=== PATIENT | female | born 1990 | race Hispanic/Latino ===

== ENCOUNTER 2017-12-03 15:22 | Emergency (ER) | payer SELFPAY ==
[2017-12-03 15:56] LABS: Basophils % (Auto) 0.3 % (0.0-1.8); Eosinophils % (Auto) 0.4 % (0.0-4.3); Hematocrit 40.4 % (30.3-42.9); Lymphocytes # (Auto) 1.3 K/mm3 (1.2-5.4); Lymphocytes % (Auto) 18.5 % (13.4-35.0); Mean Corpuscular HGB Conc 35 % (30-34); Mean Corpuscular Hemoglobin 32 pg (28-32); Mean Corpuscular Volume 91 fl (79-97); Monocytes # (Auto) 0.5 K/mm3 (0.0-0.8); Monocytes % (Auto) 6.7 % (0.0-7.3); Platelet Count 289 K/mm3 (140-440); Red Blood Count 4.43 M/mm3 (3.65-5.03); Red Cell Distribution Width 13.7 % (13.2-15.2)
[2017-12-03 16:08] LABS: INR 0.84 (0.87-1.13)
[2017-12-03 16:14] LABS: BUN/Creatinine Ratio 24; Blood Urea Nitrogen 19 mg/dL (7-17); Calcium 9.4 mg/dL (8.4-10.2); Hemolysis Index 14
--- NOTE | 2017-12-03 17:15 | Emergency Department Report ---
ED General Adult HPI - General Chief complaint: Arrhythmia/Palpitations Stated complaint: CHEST PAIN/PACING HEART Time Seen by Provider: 12/03/17 16:20 Source: patient Mode of arrival: Ambulatory Limitations: No Limitations - History of Present Illness Initial comments: Ms. 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 She presents with several weeks of heart racing. She felt as if she had just ran a race. Mild fatigue. Over the last few days she's had left-sided chest pain worse when she leans forward. Worse when she breaths in. Hoarse when she inspires. She denies leg pain. She does not take oral contraceptives. However she does have the ParaGard uterine implant for contraception. She is followed by a PCP in [facility] every 6 months. She does not have insurance so she has limited access to insulin. She did miss a few days of insulin therapy. She takes Humalog 3 times a day according to sliding scale. She admits that her hemoglobin A1c is high. She's never had chest pain such as this. Grandmother has a history of thyroid cancer. No famiily hx of coronary artery disease or pulmonary embolism. She lives with her significant other and 2 children. Children have been sick with viruses over the last 1 month. Severity scale (0 -10): 5 - Related Data Previous Rx's Medication Instructions Recorded Last Taken Type Ibuprofen 400 mg PO TID 5 Days #15 tablet 12/03/17 Unknown Rx Allergies Allergy/AdvReac Type Severity Reaction Status Date / Time Penicillins Allergy Swelling Verified 12/03/17 15:35 Sulfa (Sulfonamide Allergy Shortness Verified 12/03/17 15:35 Antibiotics) of Breath ED Review of Systems ROS: Stated complaint: CHEST PAIN/PACING HEART Other details as noted in HPI Comment: All other systems reviewed and negative Constitutional: malaise. denies: fever Respiratory: denies: cough Cardiovascular: chest pain, palpitations ED Past Medical Hx - Past Medical History Previous Medical History?: Yes Hx Diabetes: Yes (TYPE 1) Additional medical history: VAGINAL DELIVERY X 2 - Surgical History Past Surgical History?: Yes Hx Appendectomy: Yes - Family History Family history: other (grandmother with thyroid cancer) - Social History Smoking Status: Never Smoker Substance Use Type: Alcohol, Prescribed Other Social History: She works for [employer]. - Medications Home Medications: Home Medications Medication Instructions Recorded Confirmed Last Taken Type Ibuprofen 400 mg PO TID 5 Days #15 tablet 12/03/17 Unknown Rx ED Physical Exam - General Limitations: No Limitations General appearance: alert, in no apparent distress - Head Head exam: Present: atraumatic, normocephalic - Eye Eye exam: Present: normal appearance - ENT ENT exam: Present: mucous membranes moist, other (coated tongue) - Neck Neck exam: Present: normal inspection. Absent: tenderness, meningismus - Respiratory Respiratory exam: Present: normal lung sounds bilaterally. Absent: respiratory distress, wheezes, rales, rhonchi - Cardiovascular Cardiovascular Exam: Present: regular rate, normal rhythm, normal heart sounds. Absent: bradycardia, tachycardia, irregular rhythm, systolic murmur, diastolic murmur, rubs, gallop, clicks, JVD, S3, S4 - GI/Abdominal GI/Abdominal exam: Present: soft, normal bowel sounds. Absent: distended, tenderness, guarding, rebound - Extremities Exam Extremities exam: Present: normal inspection - Back Exam Back exam: Present: normal inspection - Neurological Exam Neurological exam: Present: alert, oriented X3 - Psychiatric Psychiatric exam: Present: normal affect, normal mood - Skin Skin exam: Present: warm, dry, intact, normal color. Absent: rash ED Course Vital Signs 12/03/17 12/03/17 12/03/17 15:35 16:40 16:46 Temperature 98.5 F Pulse Rate 94 H 76 Respiratory 20 11 L 20 Rate Blood Pressure 137/81 133/81 Blood Pressure [Right] O2 Sat by Pulse 97 99 Oximetry 12/03/17 12/03/17 12/03/17 16:47 16:48 17:00 Temperature 98.0 F Pulse Rate 81 77 Respiratory 10 L 10 L 15 Rate Blood Pressure 117/74 Blood Pressure 133/81 [Right] O2 Sat by Pulse 98 98 99 Oximetry 12/03/17 12/03/17 12/03/17 17:16 17:30 17:46 Temperature Pulse Rate 84 85 86 Respiratory 18 14 13 Rate Blood Pressure 117/74 120/70 120/70 Blood Pressure [Right] O2 Sat by Pulse 98 98 98 Oximetry 12/03/17 12/03/17 12/03/17 18:00 18:16 18:30 Temperature Pulse Rate 85 88 88 Respiratory 15 18 17 Rate Blood Pressure 119/75 119/75 107/61 Blood Pressure [Right] O2 Sat by Pulse 97 Oximetry 12/03/17 12/03/17 12/03/17 18:46 19:00 19:16 Temperature Pulse Rate 89 86 85 Respiratory 11 L 17 17 Rate Blood Pressure 107/61 119/71 119/71 Blood Pressure [Right] O2 Sat by Pulse 97 97 97 Oximetry 12/03/17 12/03/17 19:30 19:46 Temperature Pulse Rate 85 84 Respiratory 18 16 Rate Blood Pressure 123/76 123/76 Blood Pressure [Right] O2 Sat by Pulse 97 99 Oximetry ED Medical Decision Making - Lab Data Result diagrams: 12/03/17 15:45 12/03/17 15:45 Laboratory Results - last 24 hr 12/03/17 12/03/17 12/03/17 15:45 15:45 15:45 WBC 6.9 RBC 4.43 Hgb 14.0 Hct 40.4 MCV 91 MCH 32 MCHC 35 H RDW 13.7 Plt Count 289 Lymph % (Auto) 18.5 [place] % (Auto) 6.7 Eos % (Auto) 0.4 Baso % (Auto) 0.3 Lymph # 1.3 [place] # 0.5 Eos # 0.0 Baso # 0.0 Seg Neutrophils % 74.1 H Seg Neutrophils # 5.1 PT 11.9 L INR 0.84 L APTT 24.0 L Sodium 133 L Potassium 4.4 Chloride 94.1 L Carbon Dioxide 21 L Anion Gap 22 BUN 19 H Creatinine 0.8 Estimated GFR > 60 BUN/Creatinine Ratio 24 Glucose 556 H* Calcium 9.4 Troponin T < 0.010 Vital Signs - 24 hr 12/03/17 12/03/17 12/03/17 15:35 16:40 16:47 Temperature 98.5 F Pulse Rate 94 H Respiratory 20 11 L 10 L Rate Blood Pressure 137/81 Blood Pressure [Right] O2 Sat by Pulse 97 98 Oximetry 12/03/17 16:48 Temperature 98.0 F Pulse Rate 81 Respiratory 10 L Rate Blood Pressure Blood Pressure 133/81 [Right] O2 Sat by Pulse 98 Oximetry Abnormal Lab Results 12/03/17 12/03/17 12/03/17 15:45 15:45 15:45 WBC 6.9 RBC 4.43 Hgb 14.0 Hct 40.4 MCV 91 MCH 32 MCHC 35 H RDW 13.7 Plt Count 289 Lymph % (Auto) 18.5 [place] % (Auto) 6.7 Eos % (Auto) 0.4 Baso % (Auto) 0.3 Lymph # 1.3 [place] # 0.5 Eos # 0.0 Baso # 0.0 Seg Neutrophils % 74.1 H Seg Neutrophils # 5.1 PT 11.9 L INR 0.84 L APTT 24.0 L D-Dimer Sodium 133 L Potassium 4.4 Chloride 94.1 L Carbon Dioxide 21 L Anion Gap 22 BUN 19 H Creatinine 0.8 Estimated GFR > 60 BUN/Creatinine Ratio 24 Glucose 556 H* Calcium 9.4 Troponin T < 0.010 12/03/17 17:29 WBC RBC Hgb Hct MCV MCH MCHC RDW Plt Count Lymph % (Auto) [place] % (Auto) Eos % (Auto) Baso % (Auto) Lymph # [place] # Eos # Baso # Seg Neutrophils % Seg Neutrophils # PT INR APTT D-Dimer < 135.00 Sodium Potassium Chloride Carbon Dioxide Anion Gap BUN Creatinine Estimated GFR BUN/Creatinine Ratio Glucose Calcium Troponin T Vital Signs - 24 hr 12/03/17 12/03/17 12/03/17 15:35 16:40 16:46 Temperature 98.5 F Pulse Rate 94 H 76 Respiratory 20 11 L 20 Rate Blood Pressure 137/81 133/81 Blood Pressure [Right] O2 Sat by Pulse 97 99 Oximetry 12/03/17 12/03/17 12/03/17 16:47 16:48 17:00 Temperature 98.0 F Pulse Rate 81 77 Respiratory 10 L 10 L 15 Rate Blood Pressure 117/74 Blood Pressure 133/81 [Right] O2 Sat by Pulse 98 98 99 Oximetry 12/03/17 12/03/17 12/03/17 17:16 17:30 17:46 Temperature Pulse Rate 84 85 86 Respiratory 18 14 13 Rate Blood Pressure 117/74 120/70 120/70 Blood Pressure [Right] O2 Sat by Pulse 98 98 98 Oximetry 12/03/17 12/03/17 12/03/17 18:00 18:16 18:30 Temperature Pulse Rate 85 88 88 Respiratory 15 18 17 Rate Blood Pressure 119/75 119/75 107/61 Blood Pressure [Right] O2 Sat by Pulse 97 Oximetry 12/03/17 12/03/17 12/03/17 18:46 19:00 19:16 Temperature Pulse Rate 89 86 85 Respiratory 11 L 17 17 Rate Blood Pressure 107/61 119/71 119/71 Blood Pressure [Right] O2 Sat by Pulse 97 97 97 Oximetry 12/03/17 12/03/17 19:30 19:46 Temperature Pulse Rate 85 84 Respiratory 18 16 Rate Blood Pressure 123/76 123/76 Blood Pressure [Right] O2 Sat by Pulse 97 99 Oximetry - EKG Data 12/03/17 17:16 EKG obtained 1530 Rate 90 bpm normal sinus rhythm normal axis no ST elevation right bundle-branch block present no signs of ischemia normal [place] interval, QT interval - Radiology Data Radiology results: image reviewed interpreted by me: Chest x-ray 2 view PA lateral: No osseous abnormality. No infiltrate No pneumothorax normal heart size - Medical Decision Making Ms. Bernstein presents with several weeks of palpitations most likely due to hyperglycemia and mild dehydration. She has ketosis without acidosis. She was given 2 L normal saline in the ED. She was also given IV insulin which resolved her hyperglycemia. She has left sided chest pain with the characteristics of pleurisy or pericarditis. I provide a prescription for ibuprofen for the next 5 days. No indication of PE with normal d-dimer. No indication of pneumothorax or pneumonia next chest x-ray. Discharged home in stable improved condition. Critical care attestation.: If time is entered above; I have spent that time in minutes in the direct care of this critically ill patient, excluding procedure time. ED Disposition Clinical Impression: Hyperglycemia due to type 1 diabetes mellitus, Palpitations, Chest pain Disposition: - TO HOME OR SELFCARE Is pt being admited?: No Does the pt Need Aspirin: No Condition: Stable Instructions: Chest Pain (ED), Palpitations (ED) Prescriptions: Ibuprofen 400 mg PO TID 5 Days #15 tablet Time of Disposition: 21:50
[2017-12-03] MEDS ORDERED: NACL 0.9% 1000 ML 2,000 ML IV ONE (17:17)
[2017-12-03] MEDS ORDERED: HumuLIN R IV ONE (17:18)
--- NOTE | 2017-12-03 19:45 | XRay Report ---
FINAL REPORT EXAM: XR CHEST ROUTINE 2V HISTORY: Shortness of breath TECHNIQUE: Two view chest PA and lateral PRIORS: None. FINDINGS: Cardiac and mediastinal contours are unremarkable. No focal pulmonary infiltrate is identified. No pleural fluid collection seen. Pulmonary vasculature is unremarkable. IMPRESSION: Negative two-view chest
[2017-12-03 19:52] VITALS: BP 123/76
== END 2017-12-03 22:08 | disposition home or self-care (01) ==
LOC: ED 15:22
DX: E10.65 Type 1 diabetes mellitus with hyperglycemia (principal); R07.89 Other chest pain; E86.0 Dehydration; Z88.0 Allergy status to penicillin; Z88.2 Allergy status to sulfonamides; Z90.49 Acquired absence of other specified parts of digestive tract
CPT/HCPCS: 36415; 71046; 80048; 82962; 84484; 85025; 85379; 85610; 85730; 93005; 93010; 96360; 99284; J7030; J1815

== ENCOUNTER 2019-03-04 10:08 | Inpatient (IN) | payer OTHER ==
[2019-03-04 10:49] LABS: Basophils % (Auto) 0.5 % (0.0-1.8); Eosinophils % (Auto) 0.4 % (0.0-4.3); Hematocrit 38.6 % (30.3-42.9); Lymphocytes # (Auto) 1.8 K/mm3 (1.2-5.4); Mean Corpuscular HGB Conc 34 % (30-34); Mean Corpuscular Volume 83 fl (79-97); Monocytes # (Auto) 0.4 K/mm3 (0.0-0.8); Monocytes % (Auto) 4.6 % (0.0-7.3); Platelet Count 338 K/mm3 (140-440); Red Blood Count 4.64 M/mm3 (3.65-5.03); Red Cell Distribution Width 14.1 % (13.2-15.2)
--- NOTE | 2019-03-04 10:52 | Emergency Department Report ---
ED General Adult HPI - General Chief complaint: Hyperglycemia Stated complaint: SOB/LIGHT HEADED/DRY MOUTH Time Seen by Provider: 03/04/19 10:45 Source: patient Mode of arrival: Ambulatory Limitations: No Limitations - History of Present Illness Initial comments: Patient is 28-year-old female presents emergency room with complaints of increasing alertness, nausea vomiting, palpitations and heart racing and poor appetite. Patient states she also had increased urination. Patient also complains of dizziness. Patient states her symptoms are better with rest. Patient states she is a type I diabetic and she is compliant with her insulin. Patient states her symptoms have been going on for 1 week. Patient states her symptoms are worsening. Patient denies chest pain shortness of breath. -: Sudden Consistency: constant Improves with: rest Worsens with: medication Associated Symptoms: loss of appetite, malaise, nausea/vomiting, weakness. denies: confusion, chest pain, cough, diaphoresis, fever/chills, rash, seizure, shortness of breath, syncope Treatments Prior to Arrival: none - Related Data Home Medications Medication Instructions Recorded Confirmed Last Taken Ibuprofen [Motrin] 400 mg PO Q4-6H PRN 03/04/19 03/04/19 03/03/19 Insulin NPH Hum/Reg Insulin Hm 1 dose SUB-Q PRN 03/04/19 03/04/19 03/04/19 [Novolin 70-30 Flexpen] Allergies Allergy/AdvReac Type Severity Reaction Status Date / Time Penicillins Allergy Swelling Verified 03/04/19 11:32 Sulfa (Sulfonamide Allergy Shortness Verified 03/04/19 11:32 Antibiotics) of Breath ED Review of Systems ROS: Stated complaint: SOB/LIGHT HEADED/DRY MOUTH Other details as noted in HPI Constitutional: malaise, weakness. denies: chills, fever Eyes: denies: eye pain, eye discharge, vision change ENT: denies: ear pain, throat pain Respiratory: denies: cough, shortness of breath, wheezing Cardiovascular: palpitations. denies: chest pain Endocrine: no symptoms reported, increased thirst, increased urine Gastrointestinal: nausea, vomiting. denies: abdominal pain, diarrhea Genitourinary: frequency. denies: urgency, dysuria, discharge Musculoskeletal: denies: back pain, joint swelling, arthralgia Skin: denies: rash, lesions Neurological: weakness. denies: headache, paresthesias Psychiatric: denies: anxiety, depression Hematological/Lymphatic: denies: easy bleeding, easy bruising ED Past Medical Hx - Past Medical History Previous Medical History?: Yes Hx Diabetes: Yes (TYPE 1) Additional medical history: VAGINAL DELIVERY X 2 - Surgical History Past Surgical History?: Yes Hx Appendectomy: Yes - Family History Family history: no significant - Social History Smoking Status: Never Smoker Substance Use Type: None - Medications Home Medications: Home Medications Medication Instructions Recorded Confirmed Last Taken Type Ibuprofen [Motrin] 400 mg PO Q4-6H PRN 03/04/19 03/04/19 03/03/19 History Insulin NPH Hum/Reg Insulin Hm 1 dose SUB-Q PRN 03/04/19 03/04/19 03/04/19 History [Novolin 70-30 Flexpen] ED Physical Exam - General Limitations: No Limitations General appearance: alert, in no apparent distress - Head Head exam: Present: atraumatic, normocephalic - Eye Eye exam: Present: normal appearance - ENT ENT exam: Present: mucous membranes dry - Neck Neck exam: Present: normal inspection - Respiratory Respiratory exam: Present: normal lung sounds bilaterally. Absent: respiratory distress - Cardiovascular Cardiovascular Exam: Present: regular rate, normal rhythm. Absent: systolic murmur, diastolic murmur, rubs, gallop - GI/Abdominal GI/Abdominal exam: Present: soft, normal bowel sounds - Extremities Exam Extremities exam: Present: normal inspection - Back Exam Back exam: Present: normal inspection - Neurological Exam Neurological exam: Present: alert, oriented X3 - Psychiatric Psychiatric exam: Present: normal affect, normal mood - Skin Skin exam: Present: warm, dry, intact, normal color. Absent: rash ED Course Vital Signs 03/04/19 10:17 Temperature 98.2 F Pulse Rate 110 H Respiratory 24 Rate Blood Pressure 126/79 O2 Sat by Pulse 97 Oximetry - Reevaluation(s) Reevaluation #1: I discussed all results with patient. I discussed plan of care outpatient. Patient agrees with plan of care and admission. Patient will be admitted to the hospitalist service. 03/04/19 11:06 - Consultations Consultation #1: Hospitalist consulted for admission. Hospitalist to admit the patient. Bridge orders placed 03/04/19 11:07 ED Medical Decision Making - Lab Data Result diagrams: 03/04/19 10:27 03/04/19 12:47 - Medical Decision Making Patient is a 28-year-old female presents emergency room with complaints of poly- tipsy a polyuria and elevated blood sugar. Patient stated she comply with her medications. Patient found have DKA. Patient started on DKA protocol. Patient admitted to the ICU. Patient also admitted to the hospitalist service. - Differential Diagnosis progressing. Noncompliance. DKA. Critical Care Time: Yes Critical care attestation.: If time is entered above; I have spent that time in minutes in the direct care of this critically ill patient, excluding procedure time. Critical Care Time: 35 minutes ED Disposition Clinical Impression: Hyperglycemia Nausea & vomiting Qualifiers: Vomiting type: unspecified Vomiting Intractability: non-intractable Qualified Code(s): R11.2 - Nausea with vomiting, unspecified DKA, type 1 Qualifiers: Diabetes mellitus complication detail: without coma Qualified Code(s): E10.10 - Type 1 diabetes mellitus with ketoacidosis without coma Disposition: DC-09 OP ADMIT IP TO THIS HOSP Is pt being admited?: Yes Does the pt Need Aspirin: No Condition: Critical Time of Disposition: 11:20
[2019-03-04] MEDS ORDERED: NACL 0.9% 1000 ML 1,000 ML IV ONE ×2 (11:00→11:15)
[2019-03-04 11:09] LABS: Alanine Aminotransferase 15 units/L (7-56); Albumin 3.6 g/dL (3.9-5); BUN/Creatinine Ratio 11; Blood Urea Nitrogen 9 mg/dL (7-17); Calcium 8.9 mg/dL (8.4-10.2); Hemolysis Index 14
[2019-03-04] MEDS ORDERED: D50W (25GM) Syringe IV PRN ×2 (11:15→18:24)
[2019-03-04 11:22] LABS: Bacteria,Urine 1+ /HPF (Negative); Bilirubin,Urine NEG (Negative); Blood,Urine MOD (Negative); Color,Urine Yellow (Yellow); Mucus,Urine FEW /HPF; Protein,Urine <15 mg/dL mg/dL (Negative); Urobilinogen,Urine < 2.0 mg/dL (<2.0)
[2019-03-04] MEDS ORDERED: HumuLIN R 100 UNITS in NACL 0.9% 99 ML IV SCH ×2 (12:00→20:00)
[2019-03-04] MEDS ORDERED: D5W/0.45% NACL/KCL 20 MEQ 20 MEQ/1,000 ML BAG IV SCH (13:00)
[2019-03-04 13:19] LABS: BUN/Creatinine Ratio 16; Blood Urea Nitrogen 8 mg/dL (7-17); Calcium 8.5 mg/dL (8.4-10.2); Hemolysis Index 16
[2019-03-04 16:26] LABS: BUN/Creatinine Ratio 14; Blood Urea Nitrogen 7 mg/dL (7-17); Calcium 8.2 mg/dL (8.4-10.2); Hemolysis Index 42
[2019-03-04 17:56] LABS: BUN/Creatinine Ratio 14; Blood Urea Nitrogen 7 mg/dL (7-17); Calcium 8.2 mg/dL (8.4-10.2); Hemolysis Index 5
[2019-03-04] MEDS ORDERED: DILAUDID IV PRN (18:16)
[2019-03-04] MEDS ORDERED: ZOFRAN IV PRN (18:16)
[2019-03-04] MEDS ORDERED: PERCOCET 5/325 PO PRN (18:16)
[2019-03-04] MEDS ORDERED: REGLAN IV PRN (18:16)
[2019-03-04] MEDS ORDERED: SODIUM CHLORIDE FLUSH SYRINGE 10 ML IV PRN (18:16)
[2019-03-04] MEDS ORDERED: PHENERGAN PR PRN (18:16)
[2019-03-04] MEDS ORDERED: LOVENOX SUB-Q SCH (19:00)
[2019-03-04] MEDS ORDERED: LOVENOX SUB-Q ONE (19:44)
[2019-03-04] MEDS: HumaLOG SUB-Q SCH ×2 (19:49→23:13)
[2019-03-04] MEDS ORDERED: HumaLOG SUB-Q ONE (20:01)
[2019-03-04] MEDS ORDERED: DILAUDID ONE (20:03)
[2019-03-04 20:11] LABS: BUN/Creatinine Ratio 12; Blood Urea Nitrogen 6 mg/dL (7-17); Hemolysis Index 15
[2019-03-04] MEDS: NACL 0.9% 1000 ML 1,000 ML IV SCH (20:51)
[2019-03-04] MEDS: TYLENOL PO PRN (21:28)
[2019-03-04] MEDS: PEPCID IV SCH (21:29)
[2019-03-04] MEDS: SODIUM CHLORIDE FLUSH SYRINGE 10 ML IV SCH (21:32)
[2019-03-05] MEDS: HumaLOG SUB-Q SCH ×7 (02:13→21:46)
--- NOTE | 2019-03-05 03:44 | Event Note ---
Date: 03/04/19 See H/p in reports Mild DKA
[2019-03-05 05:27] LABS: BUN/Creatinine Ratio 16; Blood Urea Nitrogen 8 mg/dL (7-17); Calcium 7.9 mg/dL (8.4-10.2); Hemolysis Index 1
--- NOTE | 2019-03-05 06:18 | History and Physical Report ---
CHIEF COMPLAINT: Nausea, vomiting, and palpitations. HISTORY OF PRESENT ILLNESS: This is a 28-year-old female who comes in for nausea, vomiting, and palpitations of 1 day duration. Also, increased urination. The patient states that she is compliant with her insulin, but the symptoms have been going on for 1 week and symptoms are worsening. She describes she may be getting diabetic ketoacidosis. No fever or chills. Nausea, vomiting present. No diarrhea. No shortness of breath. PAST MEDICAL HISTORY: Significant for insulin-dependent diabetes on NovoLog 70/30, 20 units twice a day. PAST SURGICAL HISTORY: Appendectomy x 1. FAMILY HISTORY: No significant family history. SOCIAL HISTORY: Does not smoke. CURRENT MEDICATIONS: Insulin 70/30, 20 units twice a day. Ibuprofen 400 q. 4 hour p.r.n. REVIEW OF SYSTEMS: Significant for nausea, vomiting, and palpitations. Otherwise, review of systems negative. PHYSICAL EXAMINATION: GENERAL: Young female, cooperative during the examination. VITAL SIGNS: Blood pressure is 121/69, temperature is 97.4, pulse is 88, respirations are 18. HEENT: Unremarkable. Pupils equal and reactive. NECK: Supple. No lymphadenopathy, no thyromegaly. LUNGS: Clear to auscultation and percussion. Good air entry. CARDIOVASCULAR: S1, S2 heard. No gallop, no murmur, no rub. Apical impulse in left fifth intercostal space at midclavicular line. ABDOMEN: Soft and benign. No hepatosplenomegaly. No guarding, no rigidity. Hernial orifices are normal. EXTREMITIES: Good pedal pulses. No pedal edema. CENTRAL NERVOUS SYSTEM: Alert and oriented x 4, nonfocal exam. SKIN: Normal. LABORATORY DATA: White count is 9200, hemoglobin is 13.0 and hematocrit 38.6, platelet count is 338,000. Sodium is 134, potassium is 4.1, BUN and creatinine 9 and 0.8, anion gap is 24. A1c is 13, glucose is 257; initial one. Urine shows white blood cells. No imaging studies. ASSESSMENT AND PLAN: 1. Diabetic ketoacidosis, mild. The patient started on IV insulin in the Emergency Room and IV fluids. The patient was feeling a lot better and also the anion gap improved from 24 to 19, at which point the patient was downgraded to telemetry. The patient has uncontrolled diabetes. Medications to be adjusted. Higher insulin doses while going home. DKA protocol initiated and discontinued. 2. Hypertension. Continue antihypertensives. 3. Insulin-dependent diabetes. Continue insulin 70/30. Diabetic ketoacidosis. Continue DKA protocol. 4. Deep venous thrombosis prophylaxis. Lovenox 40 mg subcutaneous daily and gastrointestinal prophylaxis. [facility]# [id number] VSM/NTS MTDD
[2019-03-05] MEDS: PEPCID IV SCH (09:46)
[2019-03-05] MEDS: SODIUM CHLORIDE FLUSH SYRINGE 10 ML IV SCH (09:51)
[2019-03-05] MEDS: HEPARIN SUB-Q SCH ×2 (09:56→21:46)
[2019-03-05 11:42] LABS: BUN/Creatinine Ratio 18; Blood Urea Nitrogen 7 mg/dL (7-17); Hemolysis Index 49
[2019-03-05] MEDS ORDERED: K-DUR PO ONE ×2 (11:42→12:00)
[2019-03-05] MEDS: LEVAQUIN PO SCH (12:07)
--- NOTE | 2019-03-05 14:22 | Progress Note ---
Assessment and Plan Assessment and plan: Patient is a 28 yo woman with a history of IDDM who presents to [facility] ED with n/v/palpitations. DKA: s/p insulin drip, start long acting insulin, iv zofran Metabolic acidosis: treat the DKA, Uncontrolled Type 1 DM with hyperglycemia a1c 13.0: counseling done, UTI, uncomplicated: levaquin x 4 days full code Disposition: continue inpatient care, add Long acting insulin and if bG stable will discharge tomorrow. History Interval history: Patient was seen and examined. Follow-up on current diagnosis of DKA. No overnight events reported to me. Patient denies any chest pain, shortness breath, nausea/vomiting or severe headaches. Imaging, nursing note, chart, labs and old chart reviewed. Discussed with patient. Hospitalist Physical - Physical exam Narrative exam: Gen: WDWN, NAD, Awake, Alert, Orientated x 3 HEENT: NCAT, EOMI, PERRL, OP Clear Neck: supple, no adenopathy, no thyromegaly, no JVD CVS/Heart: RRR, normal S1S2, pulses present bilaterally Chest/Lungs: CTA B, Symmetrical chest expansion, good air entry bilaterally GI/Abdomen: soft, NTND, good bowel sounds, no guarding or rebound /Bladder: no suprapubic tenderness, no CVA or paraspinal tenderness Extermity/Skin: no c/c/e, no obvious rash MSK: FROM x 4 Neuro: CN 2-12 grossly intact, no new focal deficits Psych: calm - Constitutional Vitals: Temp Pulse Resp BP Pulse Ox 97.9 F 76 18 119/68 98 03/05/19 07:41 03/05/19 07:41 03/05/19 07:41 03/05/19 07:41 03/05/19 07:41 Results - Labs CBC & Chem 7: 03/04/19 10:27 03/05/19 10:53 Labs: Laboratory Last Values WBC 9.2 K/mm3 (4.5-11.0) 03/04/19 10:27 RBC 4.64 M/mm3 (3.65-5.03) 03/04/19 10:27 Hgb 13.0 gm/dl (10.1-14.3) 03/04/19 10:27 Hct 38.6 % (30.3-42.9) 03/04/19 10:27 MCV 83 fl (79-97) 03/04/19 10:27 MCH 28 pg (28-32) 03/04/19 10:27 MCHC 34 % (30-34) 03/04/19 10:27 RDW 14.1 % (13.2-15.2) 03/04/19 10:27 Plt Count 338 K/mm3 (140-440) 03/04/19 10:27 Lymph % (Auto) 19.0 % (13.4-35.0) 03/04/19 10:27 [place] % (Auto) 4.6 % (0.0-7.3) 03/04/19 10:27 Eos % (Auto) 0.4 % (0.0-4.3) 03/04/19 10:27 Baso % (Auto) 0.5 % (0.0-1.8) 03/04/19 10:27 Lymph # 1.8 K/mm3 (1.2-5.4) 03/04/19 10:27 [place] # 0.4 K/mm3 (0.0-0.8) 03/04/19 10:27 Eos # 0.0 K/mm3 (0.0-0.4) 03/04/19 10:27 Baso # 0.0 K/mm3 (0.0-0.1) 03/04/19 10:27 Seg Neutrophils % 75.5 % (40.0-70.0) H 03/04/19 10:27 Seg Neutrophils # 7.0 K/mm3 (1.8-7.7) 03/04/19 10:27 Sodium 134 mmol/L (137-145) L 03/05/19 10:53 Potassium 4.3 mmol/L (3.6-5.0) D 03/05/19 10:53 Chloride 101.7 mmol/L (98-107) 03/05/19 10:53 Carbon Dioxide 21 mmol/L (22-30) L 03/05/19 10:53 16 mmol/L 03/05/19 10:53 BUN 7 mg/dL (7-17) 03/05/19 10:53 0.4 mg/dL (0.7-1.2) L 03/05/19 10:53 Estimated GFR > 60 ml/min 03/05/19 10:53 18 % 03/05/19 10:53 Glucose 373 mg/dL (65-100) H 03/05/19 10:53 POC Glucose 185 (70-105) H 03/05/19 12:26 13.0 % (4-6) H 03/04/19 10:27 Calcium 8.0 mg/dL (8.4-10.2) L 03/05/19 10:53 Phosphorus 1.90 mg/dL (2.5-4.5) L 03/04/19 12:47 Magnesium 1.90 mg/dL (1.7-2.3) 03/04/19 12:47 0.30 mg/dL (0.1-1.2) 03/04/19 10:27 AST 15 units/L (5-40) 03/04/19 10:27 ALT 15 units/L (7-56) 03/04/19 10:27 74 units/L (35-129) 03/04/19 10:27 7.7 g/dL (6.3-8.2) 03/04/19 10:27 3.6 g/dL (3.9-5) L 03/04/19 10:27 0.9 % 03/04/19 10:27 Yellow (Yellow) 03/04/19 Unknown Hazy (Clear) 03/04/19 Unknown 5.0 (5.0-7.0) 03/04/19 Unknown Ur Specific [place] 1.029 (1.003-1.030) 03/04/19 Unknown <15 mg/dl mg/dL (Negative) 03/04/19 Unknown >=500 mg/dL (Negative) 03/04/19 Unknown 80 mg/dL (Negative) 03/04/19 Unknown Mod (Negative) 03/04/19 Unknown Neg (Negative) 03/04/19 Unknown Neg (Negative) 03/04/19 Unknown < 2.0 mg/dL (<2.0) 03/04/19 Unknown Ur Leukocyte Esterase Tr (Negative) 03/04/19 Unknown 10.0 /HPF (0.0-6.0) H 03/04/19 Unknown 1.0 /HPF (0.0-6.0) 03/04/19 Unknown U Epithel Cells (Auto) 4.0 /HPF (0-13.0) 03/04/19 Unknown 1+ /HPF (Negative) 03/04/19 Unknown Few /HPF 03/04/19 Unknown Active Medications - Current Medications Current Medications: Generic Name Dose Route Start Last Admin Trade Name Freq PRN Reason Stop Dose Admin Acetaminophen 650 mg 03/04/19 18:16 03/04/19 21:28 Tylenol PO 650 mg Q4H PRN Administration Pain MILD(1-3)/Fever >100.5/LEE Dextrose 0 ml 03/04/19 11:15 D50w (25gm) Syringe IV PRN PRN Hypoglycemia Dextrose 0 ml 03/04/19 18:24 D50w (25gm) Syringe IV PRN PRN Hypoglycemia Famotidine 20 mg 03/04/19 22:00 03/05/19 09:46 Pepcid IV 20 mg BID TATI Administration Heparin Sodium (Porcine) 5,000 unit 03/05/19 10:00 03/05/19 09:56 Heparin SUB-Q Not Given Q12HR [facility] Hydromorphone HCl 0.5 mg 03/04/19 18:16 Dilaudid IV Q3H PRN Pain , Severe (7-10) Sodium Chloride 1,000 mls @ 100 mls/hr 03/04/19 19:00 03/04/19 20:51 Nacl 0.9% 1000 Ml IV 100 mls/hr DIRECT TATI Administration Insulin Glargine 20 units 03/05/19 22:00 Lantus SUB-Q QHS TATI Insulin Human Lispro 0 unit 03/04/19 19:00 03/05/19 10:11 Humalog SUB-Q 6 unit Q4HR TATI Administration Protocol Levofloxacin 500 mg 03/05/19 12:00 03/05/19 12:07 Levaquin PO 500 mg Q24HR TATI Administration Metoclopramide HCl 10 mg 03/04/19 18:16 Reglan IV Q6H PRN Nausea And Vomiting Ondansetron HCl 4 mg 03/04/19 18:16 Zofran IV Q3H PRN Nausea And Vomiting Oxycodone/Acetaminophen 1 tab 03/04/19 18:16 Percocet 5/325 PO Q6H PRN Pain, Moderate (4-6) Promethazine HCl 25 mg 03/04/19 18:16 Phenergan [place] Q6H PRN N/V IF NPO AND NO IV ACCESS Sodium Chloride 10 ml 03/04/19 22:00 03/05/19 09:51 Sodium Chloride Flush Syringe 10 Ml IV 10 ml BID TATI Administration Sodium Chloride 10 ml 03/04/19 18:16 Sodium Chloride Flush Syringe 10 Ml IV PRN PRN LINE FLUSH
[2019-03-05] MEDS: NACL 0.9% 1000 ML 1,000 ML IV SCH (18:13)
[2019-03-05] MEDS ORDERED: LANTUS SUB-Q SCH (22:00)
[2019-03-06] MEDS: HumaLOG SUB-Q SCH ×3 (01:31→09:29)
[2019-03-06] MEDS: TYLENOL PO PRN (04:14)
[2019-03-06] MEDS: NACL 0.9% 1000 ML 1,000 ML IV SCH (04:16)
[2019-03-06 04:56] LABS: Hematocrit 36.3 % (30.3-42.9); Mean Corpuscular HGB Conc 33 % (30-34); Mean Corpuscular Volume 84 fl (79-97); Platelet Count 252 K/mm3 (140-440); Red Blood Count 4.34 M/mm3 (3.65-5.03); Red Cell Distribution Width 14.2 % (13.2-15.2)
[2019-03-06 05:06] LABS: BUN/Creatinine Ratio 23; Blood Urea Nitrogen 7 mg/dL (7-17); Calcium 7.9 mg/dL (8.4-10.2); Hemolysis Index 10
[2019-03-06 05:30] VITALS: BP 99/55
[2019-03-06] MEDS: LEVAQUIN PO SCH (09:28)
[2019-03-06] MEDS: SODIUM CHLORIDE FLUSH SYRINGE 10 ML IV SCH (09:29)
[2019-03-06] MEDS: HEPARIN SUB-Q SCH (09:30)
[2019-03-06] MEDS ORDERED: LANTUS SUB-Q SCH (10:30)
--- NOTE | 2019-03-06 10:36 | Discharge Summary ---
Providers - Providers Date of Admission: 03/04/19 12:15 Date of discharge: 03/06/19 Attending physician: ELEANOR SANCHEZ 03/04/19 18:24 Consult to Dietitian/Nutrition [CONS] Routine Physician Instructions: Reason For Exam: DKA Reason for Consult: Nutrition Recommendations Reason for Consult: Diet education [facility] Condition: Stable Hospital course: Patient is a 28 yo woman with a history of IDDM who presents to [facility] ED with n/v/palpitations. DKA: s/p insulin drip, start long acting insulin, iv zofran Metabolic acidosis: treat the DKA, Uncontrolled Type 1 DM with hyperglycemia a1c 13.0: counseling done, lantus 20 units dropped BG to 62, will d/c home with 15 units UTI, uncomplicated: levaquin x 4 days full code Disposition: DC-01 TO HOME OR SELFCARE Time spent for discharge: 32 minutes Core Measure Documentation - Palliative Care Palliative Care/ Comfort Measures: Not Applicable - Core Measures Any of the following diagnoses?: none - VTE Discharge Requirements Deep Vein Thrombosis/Pulmonary Embolism Present on Admission: No Has pt received <5 days of overlap therapy or INR<2.0: No Anticoagulant overlap therapy prescribed at discharge: No Contraindication No Overlap Therapy order at DC: Not Indicated Exam - Physical Exam Narrative exam: Gen: WDWN, NAD, Awake, Alert, Orientated x 3 HEENT: NCAT, EOMI, PERRL, OP Clear Neck: supple, no adenopathy, no thyromegaly, no JVD CVS/Heart: RRR, normal S1S2, pulses present bilaterally Chest/Lungs: CTA B, Symmetrical chest expansion, good air entry bilaterally GI/Abdomen: soft, NTND, good bowel sounds, no guarding or rebound /Bladder: no suprapubic tenderness, no CVA or paraspinal tenderness Extermity/Skin: no c/c/e, no obvious rash MSK: FROM x 4 Neuro: CN 2-12 grossly intact, no new focal deficits Psych: calm - Constitutional Vitals: Temp Pulse Resp BP Pulse Ox 98.7 F 73 20 99/55 96 03/06/19 05:27 03/06/19 05:27 03/06/19 05:27 03/06/19 05:27 03/06/19 05:27 Plan Activity: other (no strenous activity) Diet: diabetic Special Instructions: record blood sugar diary (three times a day with meals) Follow up with: DANNY WOLF MD [Staff Physician] - 7 Days Prescriptions: Insulin Detemir [Levemir Flextouch] 15 unit SQ QHS #1 pen levoFLOXacin [Levaquin TAB] 500 mg PO Q24HR #3 tablet Insulin Aspart [NovoLOG Flexpen] 1 dose SQ AC PRN #1 pen PRN Reason: Hyperglycemia
== END 2019-03-06 12:38 | disposition home or self-care (01) | DRG 638 ==
LOC: ED 10:08 → CC1 12:15 → 4A 19:16 → 3A 03-05 17:41
PROVIDERS: ADMIT Internal Medicine; ATTEND Internal Medicine
DX: E10.10 Type 1 diabetes mellitus with ketoacidosis without coma (principal); N39.0 Urinary tract infection, site not specified; I10 Essential (primary) hypertension; Z79.4 Long term (current) use of insulin; Z71.89 Other specified counseling; Z88.2 Allergy status to sulfonamides; Z88.0 Allergy status to penicillin; Z79.899 Other long term (current) drug therapy; Z90.49 Acquired absence of other specified parts of digestive tract
CPT/HCPCS: 36415; 80048; 80053; 81001; 82962; 83036; 83735; 84100; 85025; 85027; 87086; G0378; J1170; J1644; J1650; J1815; J7030

== ENCOUNTER 2019-05-20 17:29 | Emergency (ER) | payer OTHER ==
--- NOTE | 2019-05-20 18:18 | Emergency Department Report ---
Chief Complaint: Upper Respiratory Infection Stated Complaint: CHEST TIGHT/COUGH - HPI History of Present Illness: 28yo WF states she has congestion, SOB and cough x 2 weeks. Sweats and heat flashes x 2 days. - Exam Vital Signs: Vital Signs 05/20/19 17:33 Temperature 99.0 F Pulse Rate 112 H Respiratory 18 Rate Blood Pressure 139/80 O2 Sat by Pulse 94 Oximetry MSE screening note: Focused history and physical exam performed. Due to findings the following was ordered: ED Disposition for MSE Condition: Stable
--- NOTE | 2019-05-20 19:02 | XRay Report ---
CHEST 2 VIEWS INDICATION / CLINICAL INFORMATION: SOB. COMPARISON: 12/03/2017. FINDINGS: SUPPORT DEVICES: None. HEART / MEDIASTINUM: The heart size and pulmonary vasculature are normal. LUNGS / PLEURA: No significant pulmonary or pleural abnormality. No pneumothorax. ADDITIONAL FINDINGS: There is a left cervical rib. IMPRESSION: No acute abnormality or significant change. Signer Name: Scott Deleon MD Signed: 05/20/2019 6:58 PM Workstation Name: [id number]
[2019-05-20 19:15] LABS: Basophils # (Auto) 0.1 K/mm3 (0.0-0.1); Basophils % (Auto) 0.6 % (0.0-1.8); Eosinophils # (Auto) 0.1 K/mm3 (0.0-0.4); Eosinophils % (Auto) 0.6 % (0.0-4.3); Hematocrit 38.8 % (30.3-42.9); Hemoglobin 12.9 gm/dl (10.1-14.3); Lymphocytes # (Auto) 1.9 K/mm3 (1.2-5.4); Lymphocytes % (Auto) 12.1 % (13.4-35.0); Mean Corpuscular HGB Conc 33 % (30-34); Mean Corpuscular Volume 83 fl (79-97); Monocytes # (Auto) 0.8 K/mm3 (0.0-0.8); Platelet Count 370 K/mm3 (140-440); Red Blood Count 4.69 M/mm3 (3.65-5.03); Red Cell Distribution Width 13.9 % (13.2-15.2)
[2019-05-20] MEDS ORDERED: IPRATROPIUM/ALBUTEROL SULFATE 3 ML AMPUL.NEB IH ONE ×2 (22:10→22:13)
[2019-05-20] MEDS ORDERED: IBUPROFEN 600 MG TAB PO ONE (22:10)
[2019-05-20] MEDS ORDERED: methylPREDNISolone Sod Succinate 125 MG/2 ML INJ IM ONE (22:10)
[2019-05-20 23:24] LABS: Alanine Aminotransferase 15 units/L (7-56); Albumin 3.9 g/dL (3.9-5); BUN/Creatinine Ratio 24; Blood Urea Nitrogen 12 mg/dL (7-17); Calcium 8.8 mg/dL (8.4-10.2); Hemolysis Index 8
--- NOTE | 2019-05-20 23:42 | Emergency Department Report ---
- General Chief Complaint: Upper Respiratory Infection Stated Complaint: CHEST TIGHT/COUGH Source: patient Mode of arrival: Ambulatory Limitations: No Limitations - History of Present Illness Initial Comments: Patient is a 28-year-old white female with a history of type 1 diabetes who presents to the ED with complaint of acute onset persistent frontal sinus pressure, nasal and sinus congestion with persistent dry cough for the last 2 weeks, worse in the last 2 days. Patient also states that she's been having persistent nausea, subjective fever and chills diffuse body aches and pains for the last 1 week. Patient denies chest pain, shortness of breath, abdominal pain, dysuria, urinary frequency and urgency, vomiting, dizziness, back pain and neck pain, diarrhea or change in vision or syncope. MD Complaint: cough, rhinorrhea, nasal congestion, sinus pain -: Sudden, week(s) (2) Severity: severe Severity scale (0 -10): 7 Quality: sharp, aching Consistency: constant Improves With: nothing Worsens With: nothing Context: sick contacts Associated Symptoms: denies other symptoms, myalgias, headache, rhinorrhea, nasal congestion, cough, nausea. denies: fever, chills, diaphoresis, sore throat, stiff neck, chest pain, shortness of breath, diarrhea, dysuria, rash, right sweats, hoarseness, ear pain Treatments Prior to Arrival: none - Related Data Previous Rx's Medication Instructions Recorded Last Taken Type Acetaminophen [Acetaminophen TAB] 2 tab PO Q4H PRN #15 tablet 03/06/19 Unknown Rx Insulin Aspart [NovoLOG Flexpen] 1 dose SQ AC PRN #1 pen 03/06/19 Unknown Rx Insulin Detemir [Levemir Flextouch] 15 unit SQ QHS #1 pen 03/06/19 Unknown Rx levoFLOXacin [Levaquin TAB] 500 mg PO Q24HR #3 tablet 03/06/19 Unknown Rx ALBUTEROL Inhaler (OR & NICU) 1 - 2 puff IH Q4H PRN #1 inhalation 05/20/19 Unknown Rx [ProAir HFA Inhaler] Benzonatate [Tessalon Perles] 100 mg PO Q8HR #30 capsule 05/20/19 Unknown Rx Butalb/Acetamin/Caff 50-325-40 1 tab PO Q6HR PRN #12 tab 05/20/19 Unknown Rx [Fioricet 50-325-40] Cetirizine HCl [Zyrtec 10mg tab] 10 mg PO DAILY #30 tablet 05/20/19 Unknown Rx Ibuprofen [Motrin] 600 mg PO Q8H PRN #24 tablet 05/20/19 Unknown Rx levoFLOXacin [Levaquin TAB] 500 mg PO QDAY #10 tablet 05/20/19 Unknown Rx methylPREDNISolone [Medrol 4MG 4 mg PO DAILY #21 tab.ds.pk 05/20/19 Unknown Rx DOSEPAK (21 tabs)] Allergies Allergy/AdvReac Type Severity Reaction Status Date / Time Penicillins Allergy Swelling Verified 03/04/19 11:32 Sulfa (Sulfonamide Allergy Shortness Verified 03/04/19 11:32 Antibiotics) of Breath ED Review of Systems ROS: Stated complaint: CHEST TIGHT/COUGH Other details as noted in HPI Constitutional: denies: chills, fever Eyes: denies: eye pain, eye discharge, vision change ENT: congestion. denies: ear pain, throat pain Respiratory: cough. denies: shortness of breath, wheezing Cardiovascular: denies: chest pain, palpitations, dyspnea on exertion Endocrine: no symptoms reported Gastrointestinal: nausea. denies: abdominal pain, diarrhea Genitourinary: denies: urgency, dysuria, discharge Musculoskeletal: denies: back pain, joint swelling, arthralgia Skin: denies: rash, lesions Neurological: denies: headache, weakness, paresthesias Psychiatric: denies: anxiety, depression Hematological/Lymphatic: denies: easy bleeding, easy bruising ED Past Medical Hx - Past Medical History Hx Congestive Heart Failure: No Hx Diabetes: Yes Hx Asthma: No Hx COPD: No Additional medical history: VAGINAL DELIVERY X 2 - Surgical History Hx Appendectomy: Yes - Social History Smoking Status: Never Smoker Substance Use Type: None - Medications Home Medications: Home Medications Medication Instructions Recorded Confirmed Last Taken Type Acetaminophen [Acetaminophen TAB] 2 tab PO Q4H PRN #15 tablet 03/06/19 Unknown Rx Insulin Aspart [NovoLOG Flexpen] 1 dose SQ AC PRN #1 pen 03/06/19 Unknown Rx Insulin Detemir [Levemir Flextouch] 15 unit SQ QHS #1 pen 03/06/19 Unknown Rx levoFLOXacin [Levaquin TAB] 500 mg PO Q24HR #3 tablet 03/06/19 Unknown Rx ALBUTEROL Inhaler (OR & NICU) 1 - 2 puff IH Q4H PRN #1 inhalation 05/20/19 Unknown Rx [ProAir HFA Inhaler] Benzonatate [Tessalon Perles] 100 mg PO Q8HR #30 capsule 05/20/19 Unknown Rx Butalb/Acetamin/Caff 50-325-40 1 tab PO Q6HR PRN #12 tab 05/20/19 Unknown Rx [Fioricet 50-325-40] Cetirizine HCl [Zyrtec 10mg tab] 10 mg PO DAILY #30 tablet 05/20/19 Unknown Rx Ibuprofen [Motrin] 600 mg PO Q8H PRN #24 tablet 05/20/19 Unknown Rx levoFLOXacin [Levaquin TAB] 500 mg PO QDAY #10 tablet 05/20/19 Unknown Rx methylPREDNISolone [Medrol 4MG 4 mg PO DAILY #21 tab.ds.pk 05/20/19 Unknown Rx DOSEPAK (21 tabs)] ED Physical Exam - General Limitations: No Limitations General appearance: alert, in no apparent distress - Head Head exam: Present: atraumatic, normocephalic, normal inspection - Eye Eye exam: Present: normal appearance, PERRL, EOMI. Absent: conjunctival injection, periorbital swelling, periorbital tenderness Pupils: Present: normal accommodation - ENT ENT exam: Present: normal orophraynx, mucous membranes moist, TM's normal bilaterally, other (palpable severe frontal sinus tenderness, grossly congested nasal and sinus) - Neck Neck exam: Present: normal inspection, full ROM - Respiratory Respiratory exam: Present: normal lung sounds bilaterally. Absent: respiratory distress, wheezes, rhonchi, chest wall tenderness, decreased breath sounds, prolonged expiratory - Cardiovascular Cardiovascular Exam: Present: normal rhythm, tachycardia, normal heart sounds. Absent: systolic murmur, diastolic murmur, rubs, gallop - GI/Abdominal GI/Abdominal exam: Present: soft, normal bowel sounds. Absent: tenderness, guarding, rebound, hypoactive bowel sounds, organomegaly - Extremities Exam Extremities exam: Present: normal inspection, full ROM, normal capillary refill - Back Exam Back exam: Present: normal inspection, full ROM. Absent: CVA tenderness (L), muscle spasm, paraspinal tenderness, vertebral tenderness - Neurological Exam Neurological exam: Present: alert, oriented X3, CN II-XII intact, normal gait, reflexes normal - Psychiatric Psychiatric exam: Present: normal affect, normal mood - Skin Skin exam: Present: warm, dry, intact, normal color. Absent: rash ED Course Vital Signs 05/20/19 05/20/19 05/20/19 17:33 22:05 22:38 Temperature 99.0 F Pulse Rate 112 H Pulse Rate [ 78 Bilateral Throughout] Respiratory 18 20 Rate Respiratory 20 Rate [Bilateral Throughout] Blood Pressure 139/80 O2 Sat by Pulse 94 Oximetry - Reevaluation(s) Reevaluation #1: 05/20/19 23:51 Patient is a 28-year-old female who presented to the ED with frontal sinus pressure, frontal sinus headache, diffuse body aches and cough for the last 2 weeks worse in the last 2 days. Chest x-ray shows no acute cardiopulmonary abnormalities or pneumonitis. Patient was treated in the ED with DuoNeb and Solu-Medrol as well as medication for pain. On reevaluation, patient's wheezing has resolved, patient's headache is also significantly improved. Patient symptoms are likely due to frontal sinusitis, sinus pressure, bronchitis. Patient was discharged home on medications and advised to follow-up with her primary care physician in 5-7 days for reevaluation or return to the ED immediately if symptoms get worse. ED Medical Decision Making - Lab Data Result diagrams: 05/20/19 18:52 05/20/19 22:52 - Radiology Data Radiology results: report reviewed, image reviewed Chest x-ray shows no acute cardiopulmonary abnormalities or pneumonitis. - Medical Decision Making Patient is a 28-year-old female who presented to the ED with frontal sinus pressure, frontal sinus headache, diffuse body aches and cough for the last 2 weeks worse in the last 2 days. Chest x-ray shows no acute cardiopulmonary abnormalities or pneumonitis. Patient was treated in the ED with DuoNeb and Solu-Medrol as well as medication for pain. On reevaluation, patient's wheezing has resolved, patient's headache is also significantly improved. Patient symptoms are likely due to frontal sinusitis, sinus pressure, bronchitis. Leigh Ann ient was discharged home on medications and advised to follow-up with her primary care physician in 5-7 days for reevaluation or return to the ED immediately if symptoms get worse. - Differential Diagnosis acute URI; Bronchitis; Sinusitis, Viral syndrome Critical care attestation.: If time is entered above; I have spent that time in minutes in the direct care of this critically ill patient, excluding procedure time. ED Disposition Clinical Impression: Acute upper respiratory infection Acute frontal sinusitis Qualifiers: Recurrence: non-recurrent Qualified Code(s): J01.10 - Acute frontal sinusitis, unspecified Acute bronchitis Qualifiers: Bronchitis organism: unspecified organism Qualified Code(s): J20.9 - Acute bronchitis, unspecified Disposition: TO HOME OR SELFCARE Is pt being admited?: No Does the pt Need Aspirin: No Condition: Stable Instructions: Acute Bronchitis (ED), Upper Respiratory Infection (ED), Acute Bacterial Rhinosinusitis (ED) Additional Instructions: Take medication with food, drink plenty of fluids and follow-up with your primary care physician in 5-7 days for reevaluation. Return to the ED immediately if symptoms get worse. Prescriptions: Butalb/Acetamin/Caff 50-325-40 [Fioricet 50-325-40] 1 tab PO Q6HR PRN #12 tab PRN Reason: Headache levoFLOXacin [Levaquin TAB] 500 mg PO QDAY #10 tablet methylPREDNISolone [Medrol 4MG DOSEPAK (21 tabs)] 4 mg PO DAILY #21 tab.ds.pk Ibuprofen [Motrin] 600 mg PO Q8H PRN #24 tablet PRN Reason: Pain ALBUTEROL Inhaler (OR & NICU) [ProAir HFA Inhaler] 1 - 2 puff IH Q4H PRN #1 inhalation PRN Reason: Shortness Of Breath Benzonatate [Tessalon Perles] 100 mg PO Q8HR #30 capsule Cetirizine HCl [Zyrtec 10mg tab] 10 mg PO DAILY #30 tablet Referrals: MAURILIO LANGSTON MD [Primary Care Provider] - 3-5 Days Time of Disposition: 23:39 Print Language: GREENLANDIC
[2019-05-21 02:57] VITALS: BP 111/61
== END 2019-05-21 00:05 | disposition home or self-care (01) ==
LOC: ED 17:29
DX: J06.9 Acute upper respiratory infection, unspecified (principal); J01.10 Acute frontal sinusitis, unspecified; J20.9 Acute bronchitis, unspecified; E11.9 Type 2 diabetes mellitus without complications; Z90.49 Acquired absence of other specified parts of digestive tract; Z79.899 Other long term (current) drug therapy; Z88.0 Allergy status to penicillin; Z88.2 Allergy status to sulfonamides
CPT/HCPCS: 36415; 71046; 80053; 85025; 94640; 96372; 99284; J2930; 94644

== ENCOUNTER 2019-09-18 07:53 | Emergency (ER) | payer OTHER ==
--- NOTE | 2019-09-18 10:03 | Emergency Department Report ---
ED Female HPI - General Chief complaint: Urogenital-Female Stated complaint: PELVIC PAIN Time Seen by Provider: 09/18/19 08:47 Source: patient Mode of arrival: Ambulatory Limitations: No Limitations - History of Present Illness Initial comments: This is a 28-year-old male nontoxic, well nourished in appearance, no acute signs of distress presents to the ED with c/o of vaginal discharge, vaginal ulcers/lesions that are painful, and possible STD exposure. Patient denies any nausea, vomiting, chest pain, shortness of breathe, fever, chills, headache, back pain, numbness, tingling, stiff neck. Patient denies any pelvic or abdominal pain. Patient denies any urinary symptoms. Patient stated allergies to PCN and Sulfa. MD Complaint: vaginal discharge, possible STD, other (vaginal ulcers) -: days(s) Location: labia Radiation: non-radiating Severity: mild Severity scale (0 -10): 8 Quality: aching Consistency: constant Improves with: none Worsens with: none Associated Symptoms: vaginal discharge. denies: vaginal bleeding, abdominal pain, nausea/vomiting, fever/chills, headaches, loss of appetite, dysuria, hematuria, rash, seizure, shortness of breath, syncope, weakness - Related Data Sexually active: Yes Previous Rx's Medication Instructions Recorded Last Taken Type Acetaminophen [Acetaminophen TAB] 2 tab PO Q4H PRN #15 tablet 03/06/19 Unknown Rx Insulin Aspart (Nf) [NovoLOG 1 dose SQ AC PRN #1 pen 03/06/19 Unknown Rx Flexpen] Insulin Detemir (Nf) [Levemir 15 unit SQ QHS #1 pen 03/06/19 Unknown Rx Flextouch] levoFLOXacin [Levaquin TAB] 500 mg PO Q24HR #3 tablet 03/06/19 Unknown Rx Albuterol INH(or & Nicu Only) 1 - 2 puff IH Q4H PRN #1 inhalation 05/20/19 Unknown Rx [ProAir HFA Inhaler] Benzonatate [Tessalon Perles] 100 mg PO Q8HR #30 capsule 05/20/19 Unknown Rx Butalb/Acetamin/Caff 50-325-40 1 tab PO Q6HR PRN #12 tab 05/20/19 Unknown Rx [Fioricet 50-325-40] Cetirizine HCl [Zyrtec 10mg tab] 10 mg PO DAILY #30 tablet 05/20/19 Unknown Rx Ibuprofen [Motrin] 600 mg PO Q8H PRN #24 tablet 05/20/19 Unknown Rx levoFLOXacin [Levaquin TAB] 500 mg PO QDAY #10 tablet 05/20/19 Unknown Rx methylPREDNISolone [Medrol 4MG 4 mg PO DAILY #21 tab.ds.pk 05/20/19 Unknown Rx DOSEPAK (21 tabs)] Acyclovir [Zovirax Tab] 800 mg PO Q12H #10 tab 09/18/19 Unknown Rx Clindamycin [Clindamycin CAP] 300 mg PO Q8H #21 cap 09/18/19 Unknown Rx Allergies Allergy/AdvReac Type Severity Reaction Status Date / Time Penicillins Allergy Swelling Verified 03/04/19 11:32 Sulfa (Sulfonamide Allergy Shortness Verified 03/04/19 11:32 Antibiotics) of Breath ED Review of Systems ROS: Stated complaint: PELVIC PAIN Other details as noted in HPI Constitutional: denies: chills, fever Eyes: denies: eye pain, eye discharge, vision change ENT: denies: ear pain, throat pain Respiratory: denies: cough, shortness of breath, wheezing Cardiovascular: denies: chest pain, palpitations Endocrine: no symptoms reported Gastrointestinal: denies: abdominal pain, nausea, diarrhea Genitourinary: discharge. denies: urgency, dysuria, frequency, hematuria Musculoskeletal: denies: back pain, joint swelling, arthralgia Skin: denies: rash, lesions Neurological: denies: headache, weakness, paresthesias Psychiatric: denies: anxiety, depression Hematological/Lymphatic: denies: easy bleeding, easy bruising ED Past Medical Hx - Past Medical History Previous Medical History?: Yes Hx Congestive Heart Failure: No Hx Diabetes: Yes Hx Asthma: No Hx COPD: No Additional medical history: VAGINAL DELIVERY X 2 - Surgical History Past Surgical History?: Yes Hx Appendectomy: Yes - Social History Smoking Status: Never Smoker Substance Use Type: None - Medications Home Medications: Home Medications Medication Instructions Recorded Confirmed Last Taken Type Acetaminophen [Acetaminophen TAB] 2 tab PO Q4H PRN #15 tablet 03/06/19 Unknown Rx Insulin Aspart (Nf) [NovoLOG 1 dose SQ AC PRN #1 pen 03/06/19 Unknown Rx Flexpen] Insulin Detemir (Nf) [Levemir 15 unit SQ QHS #1 pen 03/06/19 Unknown Rx Flextouch] levoFLOXacin [Levaquin TAB] 500 mg PO Q24HR #3 tablet 03/06/19 Unknown Rx Albuterol INH(or & Nicu Only) 1 - 2 puff IH Q4H PRN #1 inhalation 05/20/19 Unknown Rx [ProAir HFA Inhaler] Benzonatate [Tessalon Perles] 100 mg PO Q8HR #30 capsule 05/20/19 Unknown Rx Butalb/Acetamin/Caff 50-325-40 1 tab PO Q6HR PRN #12 tab 05/20/19 Unknown Rx [Fioricet 50-325-40] Cetirizine HCl [Zyrtec 10mg tab] 10 mg PO DAILY #30 tablet 05/20/19 Unknown Rx Ibuprofen [Motrin] 600 mg PO Q8H PRN #24 tablet 05/20/19 Unknown Rx levoFLOXacin [Levaquin TAB] 500 mg PO QDAY #10 tablet 05/20/19 Unknown Rx methylPREDNISolone [Medrol 4MG 4 mg PO DAILY #21 tab.ds.pk 05/20/19 Unknown Rx DOSEPAK (21 tabs)] Acyclovir [Zovirax Tab] 800 mg PO Q12H #10 tab 09/18/19 Unknown Rx Clindamycin [Clindamycin CAP] 300 mg PO Q8H #21 cap 09/18/19 Unknown Rx ED Physical Exam - General Limitations: No Limitations General appearance: alert, in no apparent distress - Head Head exam: Present: atraumatic, normocephalic - GI/Abdominal GI/Abdominal exam: Present: soft, normal bowel sounds. Absent: distended, tenderness, guarding, rebound, rigid, diminished bowel sounds - External exam: Present: lesions (painful ulcers noted), other (Management Assistant Ernestina RN present during exam). Absent: erythema, swelling, lacerations, ecchymosis, bleeding Speculum exam: Present: cervical discharge, other (Management Assistant Ernestina RN present during exam). Absent: erythema, vaginal discharge, vaginal bleeding, foreign body, tissue, laceration Bi-manual exam: Present: other (Management Assistant Ernestina RN present during exam). Absent: cervical motion tendernes, adnexal tenderness, adnexal mass, uterine enlargement, uterine tenderness - Extremities Exam Extremities exam: Present: normal inspection, full ROM - Back Exam Back exam: Present: normal inspection, full ROM. Absent: tenderness, CVA tenderness (R), CVA tenderness (L), muscle spasm, paraspinal tenderness, vertebral tenderness, rash noted - Neurological Exam Neurological exam: Present: alert, oriented X3, normal gait - Psychiatric Psychiatric exam: Present: normal affect, normal mood - Skin Skin exam: Present: warm, dry, intact, normal color. Absent: rash ED Course Vital Signs 09/18/19 07:58 Temperature 98.4 F Pulse Rate 99 H Respiratory 18 Rate Blood Pressure 136/82 [Right] O2 Sat by Pulse 96 Oximetry - Reevaluation(s) Reevaluation #1: 09/18/19 10:42 Patient is speaking in full sentences with no signs of distress noted. ED Medical Decision Making - Medical Decision Making This is a 28-year-old female that presents with BV, possible STD and genital herpes. Patient is stable was examined by me. There is no abdominal tenderness. No pelvic pain. UA obtained. Wet prep obtained. Gonorrhea chlamydia swab pending. Patient was instructed to return in 2 days for GC results. Patient wanted empirical treatment so patient received 240 mg Gentamin (allergies to PCN) and 1 g of azithromycin by mouth. Patient was instructed to Follow-up with a primary care doctor in 3-5 days or if symptoms worsen and continue return to emergency room as soon as possible. At time of discharge, the patient does not seem toxic or ill in appearance. No acute signs of distress noted. Patient agrees to discharge treatment plan of care. No further questions noted by the patient. Critical care attestation.: If time is entered above; I have spent that time in minutes in the direct care of this critically ill patient, excluding procedure time. ED Disposition Clinical Impression: Possible exposure to STD, Bacterial vaginosis Genital herpes Qualifiers: Herpes simplex infection site: unspecified Qualified Code(s): A60.00 - Herpesviral infection of urogenital system, unspecified Disposition: -01 TO HOME OR SELFCARE Is pt being admited?: No Does the pt Need Aspirin: No Condition: Stable Instructions: Acyclovir (By mouth), Bacterial Vaginosis (ED), Genital Herpes Simplex (ED), Safe Sex (ED) Additional Instructions: Follow-up with a primary care doctor in 3-5 days or if symptoms worsen and continue return to emergency room as soon as possible. Prescriptions: Clindamycin [Clindamycin CAP] 300 mg PO Q8H #21 cap Acyclovir [Zovirax Tab] 800 mg PO Q12H #10 tab Referrals: MAURILIO LANGSTON MD [Primary Care Provider] - 3-5 Days PRIMARY CAREMD [Referring] - 3-5 Days DANNY WOLF MD [Staff Physician] - 3-5 Days [facility] [Outside] - 3-5 Days Forms: Work/School Release Form(ED)
[2019-09-18] MEDS ORDERED: AZITHROMYCIN 250 MG TAB PO ONE (10:32)
[2019-09-18] MEDS ORDERED: GENTAMICIN 40 MG/ML VIAL 2 ML IM ONE (10:33)
[2019-09-18] MEDS ORDERED: ACETAMINOPHEN W/CODEINE 300-30 MG TAB PO ONE (10:59)
[2019-09-18 11:18] LABS: Bilirubin,Urine NEG (Negative); Blood,Urine LG (Negative); Color,Urine Yellow (Yellow); Mucus,Urine FEW /HPF; Protein,Urine <15 mg/dL mg/dL (Negative); Urobilinogen,Urine < 2.0 mg/dL (<2.0)
[2019-09-18 11:19] LABS: HCG Qualitative,Urine Negative (Negative)
[2019-09-18 11:42] VITALS: BP 130/80
== END 2019-09-18 11:41 | disposition home or self-care (01) ==
LOC: ED 07:53
DX: A60.00 Herpesviral infection of urogenital system, unspecified (principal); N76.0 Acute vaginitis; B96.89 Other specified bacterial agents as the cause of diseases classified elsewhere; E11.9 Type 2 diabetes mellitus without complications; Z90.49 Acquired absence of other specified parts of digestive tract; Z79.899 Other long term (current) drug therapy; Z88.2 Allergy status to sulfonamides; Z88.0 Allergy status to penicillin
CPT/HCPCS: 81001; 81025; 82962; 87086; 87210; 87591; 96372; 99284; J1580

== ENCOUNTER 2021-04-13 18:26 | Emergency (ER) | payer OTHER ==
[2021-04-13] MEDS ORDERED: ONDANSETRON 4 MG ODT TAB PO ONE (19:20)
[2021-04-13] MEDS ORDERED: oxyCODONE /ACETAMINOPHEN 5-325MG TAB PO ONE (19:20)
[2021-04-13] MEDS ORDERED: IBUPROFEN 600 MG TAB PO ONE (19:20)
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
[2021-04-13 22:24] VITALS: BP 156/79
== END 2021-04-13 22:25 | disposition home or self-care (01) ==
LOC: ED 18:26
DX: S29.011A Strain of muscle and tendon of front wall of thorax, initial encounter (principal); Z90.89 Acquired absence of other organs; Z88.0 Allergy status to penicillin; Z88.2 Allergy status to sulfonamides; V89.2XXA Person injured in unspecified motor-vehicle accident, traffic, initial encounter; Y93.89 Activity, other specified; Y92.89 Other specified places as the place of occurrence of the external cause; Y99.8 Other external cause status
CPT/HCPCS: 71046; 99283; Q0162